=== PATIENT | female | born 1950 | race Caucasian/White ===

== ENCOUNTER 2016-10-08 19:19 | Inpatient (IN) | payer OTHER ==
[2016-10-08] VITALS (7 sets, daily range): BP systolic 109–149; BP diastolic 65–84; PULSE 73–90; RESP 16–18; TEMP 99; O2SAT 97–100
[~2016-10-08] VITALS: Ht 162.6 cm; Wt 81.2 kg
[2016-10-08] MEDS ORDERED: MORPHINE SULFATE 4 MG/ML INJ IV PUSH ONE (20:30)
[2016-10-08] MEDS ORDERED: ONDANSETRON HCL 4 MG/2 ML VIAL IVP ONE (20:30)
[2016-10-08] MEDS ORDERED: SODIUM CHLORIDE 0.9% FLUSH 5 ML FLUSH IVF PRN ×2 (20:30→22:00)
[2016-10-08 20:51] LABS: AUTOMATED NEUTROPHIL # 3.6 TH/MM3 (1.8-7.7); BASOPHIL % 0.3 % (0.0-2.0); EOSINOPHIL # 0.2 TH/MM3 (0-0.4); EOSINOPHIL % 2.5 % (0.0-4.0); HEMATOCRIT 39.9 % (35.0-46.0); HEMO FLAGS DIFF FINAL; LYMPH % 31.6 % (9.0-44.0); MEAN CELL VOLUME 89.1 FL (80.0-100.0); MEAN CORPUSCULAR HEMOGLOBIN 30.2 PG (27.0-34.0); MEAN CORPUSCULAR HGB CONC 33.9 % (32.0-36.0); MONO % 6.9 % (0.0-8.0); NEUT % 58.7 % (16.0-70.0); PLATELET COUNT 254 TH/MM3 (150-450); RED BLOOD COUNT 4.47 MIL/MM3 (4.00-5.30); RED CELL DISTRIBUTION WIDTH 14.1 % (11.6-17.2); WHITE BLOOD COUNT 6.2 TH/MM3 (4.0-11.0)
--- NOTE | 2016-10-08 20:54 | RADHPO ---
EXAM DATE/TIME: 10/08/2016 20:31 [facility] COMPARISON: No previous studies available for comparison. INDICATIONS : Trauma fall, right ankle and foot pain MEDICAL HISTORY : None. SURGICAL HISTORY : None. ENCOUNTER: Initial ACUITY: 1 day PAIN SCORE: 10/10 LOCATION: Right ankle FINDINGS: Examination reveals a trimalleolar ankle fracture/dislocation. There is posterior translocation of th e hindfoot relative to the dominant tibial and fibular fracture fragments. CONCLUSION: Moderately displaced right ankle trimalleolar fracture/dislocation Devin Mckinney MD on October 08, 2016 at 20:52 Board Certified Radiologist. This report was verified electronically.
--- NOTE | 2016-10-08 20:55 | PD ---
HPI Chief Complaint: Injury Time Seen by Provider: 20:53 Travel History International Travel<30 days: No Contact w/Intl Traveler<30days: No Traveled to known affect area: No History of Present Illness HPI 65-year-old female presents to the emergency room for evaluation of right ankle pain, obvious deformity, and swelling to her right ankle that occurred just prior to arrival. Patient states she slipped on a sheet on the floor and twisted her ankle. She tried to stand up immediately after falling but cannot apply any pressure. She called the fire department who came out and applied a splint. Patient opted to come to the emergency room via private vehicle. She has not taken anything for pain. She denies any other injuries. States denies knee pain, foot pain, and lower extremity paresthesias. She denies any chronic medical conditions or daily medications. Last ate lunch around noon and drink a glass of wine at dinnertime. PFSH Past Medical History Diminished Hearing: No Tetanus Vaccination: Unknown Influenza Vaccination: Yes ?: Not Past Surgical History Abdominal Surgery: Yes (Left ovary) Tonsillectomy: Yes Social History Alcohol Use: No Tobacco Use: No Substance Use: No Allergies-Medications (Allergen,Severity, Reaction): Coded Allergies: Codeine (Verified Allergy, Severe, 06/01/03) Uncoded Allergies: NONE (Allergy, Unknown, 06/02/03) Review of Systems Except as stated in HPI: all other systems reviewed are Neg Physical Exam Narrative GENERAL: Well-nourished, well-developed female in no acute distress. Afebrile. Ambulatory. SKIN: Warm and dry. No erythema. Mild ecchymosis to the right ankle. HEAD: Normocephalic. EYES: No scleral icterus. No injection or drainage. NECK: Supple, trachea midline. No JVD or lymphadenopathy. EXTREMITY: Obvious deformity to right ankle. Right ankle extremely tender to palpation. Limited range of motion of the ankle secondary to pain and swelling. Moderate edema. 2+ dorsalis pedis pulse. Full range of motion of the toes which causes pain in the ankle. No tenderness to palpation of the foot or knee. Full range of motion of the knee. Data Data Last Documented VS Vital Signs Date Time Temp Pulse Resp B/P Pulse Ox O2 Delivery O2 Flow Rate FiO2 10/08/16 21:10 16 10/08/16 21:05 100 Nasal Cannula 2.00 10/08/16 19:27 99.0 73 126/70 Orders Complete Blood Count With Diff (10/08/16 20:19) Comprehensive Metabolic Panel (10/08/16 20:19) Prothrombin Time / Inr (Pt) (10/08/16 20:19) Act Partial Throm Time (Ptt) (10/08/16 20:19) Type And Screen (10/08/16 20:19) Iv Access Insert/Monitor (10/08/16 20:19) Oximetry (10/08/16 20:19) Ice/Cold Pack (10/08/16 20:19) Ecg Monitoring (10/08/16 20:19) Morphine Inj (Morphine Inj) (10/08/16 20:30) Ondansetron Inj (Zofran Inj) (10/08/16 20:30) Sodium Chloride 0.9% Flush (Ns Flush) (10/08/16 20:30) Ankle, Complete ([id number]) (10/08/16 ) Foot, Limited (2vws) (10/08/16 ) Propofol 200 Mg/20 Ml Inj (Diprivan 200 (10/08/16 21:15) Sodium Chlor 0.9% 1000 Ml Inj (Ns 1000 M (10/08/16 21:15) Ankle, Limited (Ap&Lat) (10/08/16 ) Ondansetron Inj (Zofran Inj) (10/08/16 22:00) Hydromorphone Pf Inj (Dilaudid Pf Inj) (10/08/16 22:00) Admit Order (Ed Use Only) (10/08/16 ) ^ Wet Mix Operator / Telemetry (10/08/16 21:54) Diet Npo (10/10/16 Breakfast) ^ Saline Lock (10/08/16 21:54) Resp Oxygen Patrick C Titrat 1-4 L (10/08/16 ) ^ Notify Dr: Other (10/08/16 21:54) Sodium Chloride 0.9% Flush (Ns Flush) (10/09/16 09:00) Sodium Chloride 0.9% Flush (Ns Flush) (10/08/16 22:00) Consult Orthopedic (10/08/16 21:54) ^ For Further Orders (10/08/16 21:54) Labs Laboratory Tests Test 10/08/16 20:30 White Blood Count 6.2 TH/MM3 Red Blood Count 4.47 MIL/MM3 Hemoglobin 13.5 GM/DL Hematocrit 39.9 % Mean Corpuscular Volume 89.1 FL Mean Corpuscular Hemoglobin 30.2 PG Mean Corpuscular Hemoglobin 33.9 % Concent Red Cell Distribution Width 14.1 % Platelet Count 254 TH/MM3 Mean Platelet Volume 8.7 FL Neutrophils (%) (Auto) 58.7 % Lymphocytes (%) (Auto) 31.6 % Monocytes (%) (Auto) 6.9 % Eosinophils (%) (Auto) 2.5 % Basophils (%) (Auto) 0.3 % Neutrophils # (Auto) 3.6 TH/MM3 Lymphocytes # (Auto) 2.0 TH/MM3 Monocytes # (Auto) 0.4 TH/MM3 Eosinophils # (Auto) 0.2 TH/MM3 Basophils # (Auto) 0.0 TH/MM3 CBC Comment DIFF FINAL Differential Comment Prothrombin Time 10.6 SEC Prothromb Time International 1.0 RATIO Ratio Activated Partial 24.4 SEC Thromboplast Time Sodium Level 139 MEQ/L Potassium Level 3.6 MEQ/L Chloride Level 104 MEQ/L Carbon Dioxide Level 25.6 MEQ/L Anion Gap 9 MEQ/L Blood Urea Nitrogen 15 MG/DL Creatinine 0.69 MG/DL Estimat Glomerular Filtration 86 ML/MIN Rate Random Glucose 102 MG/DL Calcium Level 8.7 MG/DL Total Bilirubin 0.3 MG/DL Aspartate Amino Transf 24 U/L (AST/SGOT) Alanine Aminotransferase 30 U/L (ALT/SGPT) Alkaline Phosphatase 98 U/L Total Protein 8.0 GM/DL Albumin 4.0 GM/DL [facility] Medical Decision Making Medical Screen Exam Complete: Yes Emergency Medical Condition: Yes Medical Record Reviewed: Yes Differential Diagnosis Dislocation versus fracture versus contusion versus sprain versus strain Narrative Course 65-year-old otherwise healthy female presents to the emergency room via private vehicle for evaluation of right ankle pain, swelling, and obvious deformity that occurred just prior to arrival. Patient slipped on a sheet and twisted her ankle. Reports immediate pain and inability to ambulate. Physical exam reveals obvious deformity of the right ankle with mild tenting. No break in skin. Right lower extremity is neurovascularly intact with 2+ dorsalis pedis pulse. Full range of motion of the toes. Limited range of motion of the ankle. No knee pain. Vital signs stable. IV access established and basic labs obtained. CBC and BMP are unremarkable. Patient given morphine and Zofran. X-ray shows trimalleolar fracture with dislocation. Ankle was reduced with conscious sedation, see alternate provided for details. Patient placed in Noriega splint. Post reduction x-rays reveal improvement but some persistent dislocation. Right lower extremity remained neurovascularly intact. My attending physician, Dr. Dean, spoke to the orthopedic surgeon and admitting physician. Patient will be transferred to the main hospital for surgical fixation. Physician Communication Physician Communication My attending physician, Dr. Dean, spoke to the orthopedic surgeon, Dr. Farrell. Diagnosis Primary Impression: Trimalleolar fracture of ankle, closed Qualified Code: S82.851A - Trimalleolar fracture of ankle, closed, right, initial encounter Additional Impression: Dislocation closed Admitting Information Admitting Physician Requests: Admit Condition: Stable Claire Portillo Oct 08, 2016 20:55
--- NOTE | 2016-10-08 20:56 | RADHPO ---
EXAM DATE/TIME: 10/08/2016 20:34 [facility] COMPARISON: No previous studies available for comparison. INDICATIONS : Trauma fall, right ankle and foot pain MEDICAL HISTORY : None. SURGICAL HISTORY : None. ENCOUNTER: Initial ACUITY: 1 day PAIN SCORE: 8/10 LOCATION: Right foot/ankle FINDINGS: Ankle fracture described separately. The foot is otherwise intact with no evidence of fracture or dis location. Mineralization is normal no significant articular abnormalities are evident. CONCLUSION: Ankle fracture. Foot is intact Devin Mckinney MD on October 08, 2016 at 20:53 Board Certified Radiologist. This report was verified electronically.
[2016-10-08 20:58] LABS: CHLORIDE 104 MEQ/L (98-107); POTASSIUM 3.6 MEQ/L (3.5-5.1); SODIUM (NA) 139 MEQ/L (136-145)
[2016-10-08 21:01] LABS: ANION GAP 9 MEQ/L (5-15); APTT (PATIENT) 24.4 SEC (24.3-30.1); BICARBONATE 25.6 MEQ/L (21.0-32.0); BLOOD UREA NITROGEN 15 MG/DL (7-18); PROTHROMBIN TIME - PATIENT 10.6 SEC (9.8-11.6)
[2016-10-08 21:04] LABS: ALT (GPT) 30 U/L (10-53); AST (GOT) 24 U/L (15-37); GLOMERULAR FILTRATION RATE 86 ML/MIN (>89)
[2016-10-08 21:06] LABS: TOTAL BILIRUBIN ADULT 0.3 MG/DL (0.2-1.0)
[2016-10-08 21:07] LABS: ALKALINE PHOSPHATASE 98 U/L (45-117)
[2016-10-08] MEDS ORDERED: PROPOFOL 200 MG/20 ML AMP IV ONE (21:15)
[2016-10-08] MEDS: SODIUM CHLOR 0.9% 1000 ML INJ 1,000 ML IV SCH (21:15)
--- NOTE | 2016-10-08 21:42 | PD ---
Physical Exam Date Seen by Provider: Oct 08, 2016 Time Seen by Provider: 21:24 Narrative GENERAL: Well developed well-nourished female in no acute distress no respiratory distress with GCS of 15 SKIN: Warm and dry. HEAD: Normocephalic. Atraumatic. EYES: No scleral icterus. No injection or drainage. NECK: Supple, trachea midline. No JVD or lymphadenopathy. No tenderness to palpation along the cervical spine no bony step-off. CARDIOVASCULAR: Regular rate and rhythm without murmurs, gallops, or rubs. Chest wall: Nontender to palpation RESPIRATORY: Breath sounds equal bilaterally. No accessory muscle use. GASTROINTESTINAL: Abdomen soft, non-tender, nondistended. MUSCULOSKELETAL: No cyanosis, or edema. Patient with obvious closed deformity and tenting medial aspect of the right lower extremity at the ankle with palpable dorsalis pedis pulse and brisk capillary refill less than 2 seconds and intact sensation proximally extremity is neurovascular tendon intact with intact knee flexion and hip flexion. Right upper extremity left upper extremity left lower extremity exams are grossly normal range with brisk capillary refill per digit and 2+ radial and dorsalis pedis pulses 2 palpation intact sensation BACK: Nontender without obvious deformity. No CVA tenderness. Data Data Last Documented VS Vital Signs Date Time Temp Pulse Resp B/P Pulse Ox O2 Delivery O2 Flow Rate FiO2 10/08/16 21:10 16 10/08/16 21:05 100 Nasal Cannula 2.00 10/08/16 19:27 99.0 73 126/70 Orders Complete Blood Count With Diff (10/08/16 20:19) Comprehensive Metabolic Panel (10/08/16 20:19) Prothrombin Time / Inr (Pt) (10/08/16 20:19) Act Partial Throm Time (Ptt) (10/08/16 20:19) Type And Screen (10/08/16 20:19) Iv Access Insert/Monitor (10/08/16 20:19) Oximetry (10/08/16 20:19) Ice/Cold Pack (10/08/16 20:19) Ecg Monitoring (10/08/16 20:19) Morphine Inj (Morphine Inj) (10/08/16 20:30) Ondansetron Inj (Zofran Inj) (10/08/16 20:30) Sodium Chloride 0.9% Flush (Ns Flush) (10/08/16 20:30) Ankle, Complete ([id number]) (10/08/16 ) Foot, Limited (2vws) (10/08/16 ) Propofol 200 Mg/20 Ml Inj (Diprivan 200 (10/08/16 21:15) Sodium Chlor 0.9% 1000 Ml Inj (Ns 1000 M (10/08/16 21:15) Ankle, Limited (Ap&Lat) (10/08/16 ) Ondansetron Inj (Zofran Inj) (10/08/16 22:00) Hydromorphone Pf Inj (Dilaudid Pf Inj) (10/08/16 22:00) Admit Order (Ed Use Only) (10/08/16 ) ^ Poultry Farm Manager / Telemetry (10/08/16 21:54) Diet Npo (10/10/16 Breakfast) ^ Saline Lock (10/08/16 21:54) Resp Oxygen Patrick C Titrat 1-4 L (10/08/16 ) ^ Notify Dr: Other (10/08/16 21:54) Sodium Chloride 0.9% Flush (Ns Flush) (10/09/16 09:00) Sodium Chloride 0.9% Flush (Ns Flush) (10/08/16 22:00) Consult Orthopedic (10/08/16 21:54) ^ For Further Orders (10/08/16 21:54) Labs Laboratory Tests Test 10/08/16 20:30 White Blood Count 6.2 TH/MM3 Red Blood Count 4.47 MIL/MM3 Hemoglobin 13.5 GM/DL Hematocrit 39.9 % Mean Corpuscular Volume 89.1 FL Mean Corpuscular Hemoglobin 30.2 PG Mean Corpuscular Hemoglobin 33.9 % Concent Red Cell Distribution Width 14.1 % Platelet Count 254 TH/MM3 Mean Platelet Volume 8.7 FL Neutrophils (%) (Auto) 58.7 % Lymphocytes (%) (Auto) 31.6 % Monocytes (%) (Auto) 6.9 % Eosinophils (%) (Auto) 2.5 % Basophils (%) (Auto) 0.3 % Neutrophils # (Auto) 3.6 TH/MM3 Lymphocytes # (Auto) 2.0 TH/MM3 Monocytes # (Auto) 0.4 TH/MM3 Eosinophils # (Auto) 0.2 TH/MM3 Basophils # (Auto) 0.0 TH/MM3 CBC Comment DIFF FINAL Differential Comment Prothrombin Time 10.6 SEC Prothromb Time International 1.0 RATIO Ratio Activated Partial 24.4 SEC Thromboplast Time Sodium Level 139 MEQ/L Potassium Level 3.6 MEQ/L Chloride Level 104 MEQ/L Carbon Dioxide Level 25.6 MEQ/L Anion Gap 9 MEQ/L Blood Urea Nitrogen 15 MG/DL Creatinine 0.69 MG/DL Estimat Glomerular Filtration 86 ML/MIN Rate Random Glucose 102 MG/DL Calcium Level 8.7 MG/DL Total Bilirubin 0.3 MG/DL Aspartate Amino Transf 24 U/L (AST/SGOT) Alanine Aminotransferase 30 U/L (ALT/SGPT) Alkaline Phosphatase 98 U/L Total Protein 8.0 GM/DL Albumin 4.0 GM/DL Blood Type A NEGATIVE Antibody Screen NEGATIVE Blood Bank Comment [facility] Medical Record Reviewed: Yes Supervised Visit with CHICA: Yes Interpretation(s) Laboratory Tests Test 10/08/16 20:30 White Blood Count 6.2 TH/MM3 Red Blood Count 4.47 MIL/MM3 Hemoglobin 13.5 GM/DL Hematocrit 39.9 % Mean Corpuscular Volume 89.1 FL Mean Corpuscular Hemoglobin 30.2 PG Mean Corpuscular Hemoglobin 33.9 % Concent Red Cell Distribution Width 14.1 % Platelet Count 254 TH/MM3 Mean Platelet Volume 8.7 FL Neutrophils (%) (Auto) 58.7 % Lymphocytes (%) (Auto) 31.6 % Monocytes (%) (Auto) 6.9 % Eosinophils (%) (Auto) 2.5 % Basophils (%) (Auto) 0.3 % Neutrophils # (Auto) 3.6 TH/MM3 Lymphocytes # (Auto) 2.0 TH/MM3 Monocytes # (Auto) 0.4 TH/MM3 Eosinophils # (Auto) 0.2 TH/MM3 Basophils # (Auto) 0.0 TH/MM3 CBC Comment DIFF FINAL Differential Comment Prothrombin Time 10.6 SEC Prothromb Time International 1.0 RATIO Ratio Activated Partial 24.4 SEC Thromboplast Time Sodium Level 139 MEQ/L Potassium Level 3.6 MEQ/L Chloride Level 104 MEQ/L Carbon Dioxide Level 25.6 MEQ/L Anion Gap 9 MEQ/L Blood Urea Nitrogen 15 MG/DL Creatinine 0.69 MG/DL Estimat Glomerular Filtration 86 ML/MIN Rate Random Glucose 102 MG/DL Calcium Level 8.7 MG/DL Total Bilirubin 0.3 MG/DL Aspartate Amino Transf 24 U/L (AST/SGOT) Alanine Aminotransferase 30 U/L (ALT/SGPT) Alkaline Phosphatase 98 U/L Total Protein 8.0 GM/DL Albumin 4.0 GM/DL Blood Type A NEGATIVE Antibody Screen NEGATIVE Blood Bank Comment Right ankle x-ray: trimalleolar fracture dislocation right foot xr: foot nabi; ankle fracture cbc: wnlbmp: wnl coags: wnl Last Impressions Foot X-Ray 10/08/16 0000 Signed Impressions: Service Date/Time: Saturday, October 08, 2016 20:34 - CONCLUSION: Ankle fracture. Foot is intact Devin Mckinney MD Ankle X-Ray 10/08/16 0000 Signed Impressions: Service Date/Time: Saturday, October 08, 2016 21:32 - CONCLUSION: Casted trimalleolar right ankle fracture with some persistent displacement Devin Mckinney MD Ankle X-Ray 10/08/16 0000 Signed Impressions: Service Date/Time: Saturday, October 08, 2016 20:31 - CONCLUSION: Moderately displaced right ankle trimalleolar fracture/dislocation Devin Mckinney MD Differential Diagnosis fracture dislocation neurovascular injury Narrative Course Patient accepted in transfer of care from the [facility] as it was noted upon her arrival to have ankle deformity with tenting consistent with fracture dislocation of the right ankle. According to patient she was making a bed misstep slipped on a sheet on the floor and landed with her right ankle underneath her with pain. Patient was unable to attempt weightbearing secondary to pain. Patient denied other injury. Patient did not hit her head, did not have loss of consciousness, did not injure her neck, denies any upper or lower back pain, no chest pain or rib pain, no shortness of breath, no abdominal pain, no pelvic pain and no other extremity injury. Patient denies any chronic medical conditions however with repeated questioning does admit to history of sleep apnea but does not use CPAP denies any medications on a daily basis no previous surgeries and no tobacco use. Patient last ate around lunchtime and did have a glass of wine this evening. On physical exam patient is noted to have obvious deformity of the right ankle there is no open abrasion laceration or wound. Foot is neurovascularly intact. Capillary refill is brisk and less than 2 seconds per digit, dorsalis pedis pulses 2+ to palpation, patient has been sent for imaging and is aware that recommendation will be to undergo procedural sedation and reduction of the ankle here in the emergency department with anticipated need for admission to [facility] for definitive surgical intervention and repair of the suspected trimalleolar fracture. Imaging study is consistent with a trimalleolar fracture dislocation of the ankle; patient is agreeable to procedural sedation and reduction of the dislocation in the emergency department. Patient's case discussed with on-call orthopedist Dr. Farrell who recommends patient be transferred to [facility] admitted to the medicine service with consult to Dr. Noriega in the a.m. Patient administered Zofran 4 mg IV Dilaudid 0.5 mg IV maintenance IV fluids and kept nothing by mouth Procedures Procedure Narrative After the risks and benefits were discussed the following procedure was performed: MODERATE SEDATION: The patient was placed on a panel monitor and pulse oximetry. An ambu bag and suction was immediately available at bedside. The patient was monitored by the nurse. Oxygen saturation, heart rate and blood pressure were monitored. Procedural sedation was achieved using propofol 100mg . The patient was observed until awake and alert. Procedural Sedation time in attendance was 35 minutes. After acceptable procedural sedation obtained with patient in optimal position gentle traction was applied to the foot at the heel, with the lower leg secured with countertraction, minimal effort ankle appeared to reduce to anatomical position with resolution of tenting of the skin; post reduction maintained 2+ to palpation dorsalis pedis pulse, maintained capillary refill less than 2 seconds per digit; maintained sensation; patient able to dorsiflex and plantarflex the toes and a Noriega splint was applied with ice cuff. Patient tolerated procedural reduction of the dislocation well. Imaging study ordered. Physician Communication Physician Communication call placed to ortho on-call: discussed with Dr Farrell consult to Dr Noriega admit to medicine to [facility] ; call placed to [facility] provider Dr Hills Diagnosis Primary Impression: Trimalleolar fracture of ankle, closed Qualified Code: S82.851A - Trimalleolar fracture of ankle, closed, right, initial encounter Additional Impression: Dislocation closed Admitting Information Admitting Physician Requests: Admit Karmen Dean MD Oct 08, 2016 21:42
[2016-10-08] MEDS ORDERED: ONDANSETRON HCL 4 MG/2 ML VIAL IV PUSH ONE (22:00)
[2016-10-08] MEDS ORDERED: HYDROmorphone HCL PF 1 MG/ML VIAL IV PUSH ONE (22:00)
[2016-10-08] MEDS ORDERED: SODIUM CHLOR 0.9% 1000 ML INJ 1,000 ML IV ONE ×2 (22:15→22:30)
--- NOTE | 2016-10-08 22:16 | RADHPO ---
EXAM DATE/TIME: 10/08/2016 21:32 [facility] COMPARISON: No previous studies available for comparison. INDICATIONS : Post reduction right ankle MEDICAL HISTORY : SURGICAL HISTORY : None. ENCOUNTER: Subsequent ACUITY: 1 day PAIN SCORE: Non-responsive. LOCATION: Right ankle FINDINGS: Bony detail is obscured by cast material. A trimalleolar ankle fracture is again noted with some inte rval reduction. Mild persistent lateral displacement of the medial and lateral malleolar fragments an d the talus relative to the dominant tibial fragment and slight dorsal shift of the tibia relative to the talar dome. CONCLUSION: Casted trimalleolar right ankle fracture with some persistent displacement Devin Mckinney MD on October 08, 2016 at 22:13 Board Certified Radiologist. This report was verified electronically.
[2016-10-09] VITALS (10 sets, daily range): BP systolic 120–165; BP diastolic 72–84; PULSE 70–90; RESP 16–18; TEMP 96.2–97.9; O2SAT 94–98
[2016-10-09] MEDS ORDERED: ONDANSETRON HCL 4 MG/2 ML VIAL IV PUSH ONE ×2 (01:15→12:01)
[2016-10-09] MEDS ORDERED: HYDROmorphone HCL PF 1 MG/ML VIAL IV PUSH ONE (01:15)
[2016-10-09] MEDS ORDERED: ONDANSETRON HCL 4 MG/2 ML VIAL IV PUSH PRN (03:45)
[2016-10-09] MEDS ORDERED: INSULIN HUMAN REGULAR 1,000 UNITS/10 ML VIAL SQ PRN (03:45)
[2016-10-09] MEDS ORDERED: HYDROmorphone HCL PF 1 MG/ML VIAL IV PRN ×2 (03:45)
[2016-10-09] MEDS: LACTATED RINGER'S 1000 ML IV SCH (03:45)
[2016-10-09] MEDS: SODIUM CHLORID 0.9% 500 ML IV SCH ×2 (03:45→20:24)
--- NOTE | 2016-10-09 06:37 | PD.ORT.PN ---
Subjective Subjective Remarks s/p fall at home right ankle pain. no other complaints. Objective Vitals Vital Signs Date Time Temp Pulse Resp B/P Pulse Ox O2 Delivery O2 Flow Rate FiO2 10/09/16 03:56 98 Nasal Cannula 2.00 10/09/16 03:00 96.7 87 17 142/80 98 10/09/16 02:00 90 18 131/84 98 Nasal Cannula 2 10/09/16 02:00 16 10/09/16 01:05 72 16 132/74 98 Nasal Cannula 10/09/16 00:05 70 16 120/72 98 Nasal Cannula 2 10/08/16 23:05 76 16 109/65 98 Nasal Cannula 2 10/08/16 22:45 16 10/08/16 22:35 88 18 117/68 97 Nasal Cannula 2 10/08/16 22:05 90 16 123/77 99 Nasal Cannula 2 10/08/16 21:25 84 16 121/74 98 Nasal Cannula 2 10/08/16 21:10 16 10/08/16 21:05 100 Nasal Cannula 2.00 10/08/16 21:05 88 18 149/84 100 Nasal Cannula 2 10/08/16 21:05 100 2.00 10/08/16 21:00 18 100 Nasal Cannula 2 10/08/16 20:55 96 18 97 Room Air 10/08/16 19:27 99.0 73 18 126/70 99 I/O 10/08/16 10/08/16 10/08/16 10/09/16 10/09/16 10/09/16 07:00 15:00 23:00 07:00 15:00 23:00 Intake Total 1500 ml Output Total 2100 ml Balance -600 ml Intake IV Total 1500 ml Output Urine Total 2100 ml # Voids 1 Result Diagram: 10/08/16202910/08/162029 Other Results Laboratory Tests Test 10/08/16 20:30 Prothrombin Time 10.6 SEC (9.8-11.6) Prothromb Time International 1.0 RATIO Ratio Objective Remarks RLE: +short leg splint. no pain in knee or hip. NVI Assessment & Plan Assessment and Plan 1) Right Scottie Ankle Fx -npo -consents -surgeyr today Josue Corbin Oct 09, 2016 06:36
[2016-10-09] MEDS ORDERED: WALKER/ADULT/FO1 MIS (06:39)
[2016-10-09] MEDS ORDERED: HYDR-3288 PO (06:39)
[2016-10-09] MEDS ORDERED: GENTAMICIN SULFATE 80 MG/2 ML VIAL ONE ×2 (08:10→08:38)
[2016-10-09] MEDS ORDERED: BUPIVACAINE/EPINEPHRINE 0.25% PF 30 ML VIAL ONE (08:11)
[2016-10-09] MEDS ORDERED: ceFAZolin INJ 1,000 MG VIAL ONE (08:12)
[2016-10-09] MEDS ORDERED: VANCOMYCIN HCL 1000 MG VIAL ONE ×2 (08:13→10:29)
[2016-10-09] MEDS ORDERED: FAMOTIDINE 20 MG/2 ML VIAL ONE (08:27)
[2016-10-09] MEDS ORDERED: METOCLOPRAMIDE HCL 10 MG/2 ML VIAL ONE (08:27)
[2016-10-09] MEDS ORDERED: ACETAMINOPHEN 1000 MG/100 ML VIAL IV ONE (08:46)
[2016-10-09] MEDS ORDERED: MIDAZOLAM HCL 2 MG/2 ML VIAL ONE ×2 (08:46→11:55)
[2016-10-09] MEDS ORDERED: fentaNYL CITRATE 250 MCG/5 ML AMP ONE ×2 (08:47→11:55)
[2016-10-09] MEDS: SODIUM CHLORIDE 0.9% FLUSH 5 ML FLUSH IVF SCH ×2 (09:00→20:24)
--- NOTE | 2016-10-09 09:06 | MH ---
cc: DUSTIN LEUNG M.D. DATE OF ADMISSION: 10/08/2016 ADMISSION DIAGNOSIS 1. Trimalleolar fracture of the right ankle with persistent displacement. 2. Right carotid bruit. PERTINENT HISTORY This is a pleasant 65-year-old white female who presented to the emergency room in [place] yesterday evening after she injured her right ankle. She slipped on a sheet on the floor and twisted her ankle. She tried to stand up but was not able to apply any pressure. corporate counselor were called and they applied a splint. The patient opted to go to the emergency room via private vehicle. In the ER she was found to have the fracture as mentioned. The orthopedic surgeon was called who recommended she be admitted to [place]. She was transferred to [place] where I am seeing her now. She has no other complaints. He has been healthy. PAST MEDICAL HISTORY She had pancreatitis around 2012. She had some brief SVT around 2000 with a negative treadmill stress test and she has not had any problem with that in several years. She denies any heart attack, angina, CHF, lung disease, liver disease. No kidney disease or colon disease. No cancer. No thyroid problem. No seizures. PAST SURGICAL HISTORY 1. Tonsillectomy. 2. Left ovary removed for a cyst. 3. Laparoscopic cholecystectomy. 4. Colonoscopy about 5 years ago that was negative. ALLERGIES SHE TOOK CODEINE ONE TIME AND JUST HAD SOME NAUSEA, HAD NOT HAD ANY RASH OR HIVES. MEDICATIONS She is not on any medications. FAMILY HISTORY Father at 78 of leukemia. Mother at 92 of respiratory failure. She had diabetes and hypertension. SOCIAL HISTORY She has never smoked, has one glass of wine a day. 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. REVIEW OF SYSTEMS GENERAL: No fever, chills or sweats. HEENT: No runny nose, sore throat. No visual complaints. CARDIOVASCULAR: No chest pain, orthopnea, PND. PULMONARY: No cough, hemoptysis, wheezing. GI: No nausea, vomiting, constipation, diarrhea. No rectal bleeding. : No dysuria, urgency, frequency. Skin: Without rash. MUSCULOSKELETAL: Right ankle pain as mentioned. NEUROLOGIC: Without any numbness, tingling or motor deficits. PHYSICAL EXAMINATION GENERAL: A pleasant white female in no acute distress. VITAL SIGNS: BP 142/80, 131/84, respirations 17, pulse 87, temperature 96.7. O2 sat good. HEENT: Pupils equal. Sclera non-icteric. Nose without lesion. Mouth without inflammation or lesion. NECK: She has a right carotid bruit that she was not aware of. No bruit on the left side. HEART: Regular rate and rhythm. No murmur. LUNGS: Clear. ABDOMEN: Soft, nontender, no masses. EXTREMITIES: She has a splint on the right lower leg and ankle. Pulses are palpated in the left foot. No edema. SKIN: Negative. NEUROLOGIC: Oriented x3. Cranial nerves, motor and sensory intact. LABORATORY DATA CBC is negative with normal hemoglobin, white count and platelet count. CMP: Sodium 139, potassium 3.6, chloride 104, CO2 25.6, BUN 15, creatinine 0.69, calcium 8.7. AST, ALT, alkaline phosphatase, total protein and albumin were normal. Glucose 102. IMAGING DATA Foot x-ray was negative. Ankle x-ray showed the trimalleolar fracture as mentioned. ASSESSMENT As noted. PLAN Orthopedist will be seeing her and potentially going to the OR today. She is medically stable for surgery. I did inform her of for carotid bruit and told her she should see her PCP as an outpatient and get a carotid ultrasound. She has been given Dilaudid for pain. MD ANKUSH Waite/DEVON /6:33 AM /8:40 AM
[2016-10-09] MEDS ORDERED: ceFAZolin 2 GM PREMIX 50 ML ONE (10:29)
[2016-10-09] MEDS ORDERED: SODIUM CHLOR 0.9% 250 ML INJ 250 ML ONE (10:30)
--- NOTE | 2016-10-09 11:35 | PD.OP ---
cc: Klaus Perdue MD Operative Report Date of Surgery: Oct 09, 2016 Preoperative Diagnosis: Right ankle trimalleolar fracture Postoperative Diagnosis: Procedure: Open reduction internal fixation right ankle fractures Anesthesia: Gen. Surgeon: Klaus Perdue Illusionist(s): LINDSEY Beasley PA-C The surgical procedure was assisted by my physician congressional assistant. My P.A. presence was necessary throughout this case for the manipulation and positioning of the surgical extremity. My P.A. was assisting me throughout the duration of this procedure. The skill set of a physician congressional assistant was medically necessary to complete this procedure. During the surgical case the surgical nurse was working at the back table and the physician congressional assistant was directly assisting me. Operation and Findings: Patient was seen and evaluated preoperatively and found to have a displaced right ankle trimalleolar fracture. Informed consent was obtained after a detailed discussion of risk and benefits of surgery. The operative site was marked. Patient was brought to the OR, placed on the OR table, and given IV sedation and general endotracheal anesthesia. IV antibiotics were given preoperatively. A timeout procedure was performed. The left leg was prepped with alcohol followed by Hibiclens and draped in the usual sterile fashion. Attention was turned towards the distal fibula. A four-inch incision was made over the distal fibula. The subcutaneous tissue was dissected with Bovie. The fracture site was visualized. The fracture site was cleaned with curets. The fracture was now reduced. The fracture keyed into anatomic alignment. K-wires were used to h old provisional fixation. A lag screw was placed to compress fracture. A Synthes plate was selected. The plate was provisionally held to bone with K-wires. 3.5 cortical screws were used to compress the plate to bone. Multiple screws were placed above and below the fracture. Next attention was turned towards the medial malleolus. The medial malleolus supposed through a 3 cm incision. Saphenous vein was retracted. Fracture was visualized. Fracture was cleaned with curettes. Fracture was now reduced and keyed into anatomic alignment. K wires were used to hold provisional fixation. 2 guidepins for the 4.0 cannulated screws were placed in a retrograde fashion across the fracture. Fluoroscopy was used to confirm guidepin placement. Cannulated drill was placed over the guidepin. 2 appropriate length screws were now placed. Good compression was applied. Fluoroscopy confirmed well aligned fracture with well-placed hardware. The posterior malleolus was also visualized. This was small fragment and was in excellent position. This was left in place. Next, attention was turned to the syndesmosis. The syndesmosis was stressed. There was no widening of the syndesmosis with external rotation of the ankle. Incisions were thoroughly irrigated. The subcutaneous tissue was closed with 3- 0 PDS and the skin was closed with 3-0 nylon. Sterile dressings were applied. A well molded well-padded splint was applied. The patient was transferred to Recovery in stable condition. Needle and sponge counts were correct. Klaus Perdue MD Oct 09, 2016 11:35
[2016-10-09] MEDS ORDERED: MORPHINE SULFATE 4 MG/ML INJ IV PUSH PRN (11:45)
[2016-10-09] MEDS ORDERED: Post-op Orders (for Pharmacy) MISC XX ONE (11:45)
[2016-10-09] MEDS ORDERED: ACETAMINOPHEN/HYDROcodone 325 MG/7.5 MG TAB PO PRN ×2 (11:45)
--- NOTE | 2016-10-09 11:52 | RADRPT ---
EXAM DATE/TIME: 10/09/2016 11:16 [facility] COMPARISON: ANKLE RIGHT LIMITED (AP&LAT), October 08, 2016, 21:32. INDICATIONS : Post-op ORIF right ankle fracture. MEDICAL HISTORY : None. SURGICAL HISTORY : None. ENCOUNTER: Subsequent ACUITY: 2 days PAIN SCORE: Non-responsive. LOCATION: Right ankle. FINDINGS: Status post internal fixation at the ankle. There is good position and alignment of the fracture frag ments. The hardware appears to be intact. There is good alignment the mortise joint. CONCLUSION: Good position and alignment on this postoperative study. Ayo Reed MD on October 09, 2016 at 11:50 Board Certified Radiologist. This report was verified electronically.
[2016-10-09] MEDS ORDERED: DO NOT ADM ANY ANTICOAGULANT DRUGS XX PRN (11:53)
[2016-10-09] MEDS ORDERED: *morphine SULFATE 8 MG/ML PERIprocedure ONLY ONE ×2 (12:00→12:21)
[2016-10-09] MEDS ORDERED: LACTATED RINGER'S 1000 ML INJ 1,000 ML IV ONE (12:01)
[2016-10-09] MEDS ORDERED: PROPOFOL 200 MG/20 ML AMP IV ONE (12:01)
--- NOTE | 2016-10-09 14:49 | MB ---
cc: ARNEL BRUCECADENMARY DATE OF CONSULTATION: 10/09/2016 REASON FOR CONSULTATION Right ankle trimalleolar fracture. CONSULTING PHYSICIAN Dr. Arnel Bruce HISTORY OF PRESENT ILLNESS Mrs. Shane is a 65-year-old female who presented to the emergency room after injuring her ankle. She tripped on a sheet from her bed. She twisted her ankle and fell. She was unable to stand or ambulate. She presented to the emergency room where x-rays revealed a displaced right ankle fracture. She is currently awake and alert on the orthopedic floor. Her only complaint is her right ankle. She denies dizziness, syncope or loss of consciousness. Pain is worse with movement and is improved with rest. PAST MEDICAL HISTORY ILLNESSES 1. History of pancreatitis. 2. SVT. SURGERIES 1. Tonsillectomy. 2. Oophorectomy. 3. Cholecystectomy. 4. Colonoscopy. ALLERGIES CODEINE. MEDICATIONS None. SOCIAL HISTORY The patient denies tobacco or drug use. She drinks wine. FAMILY HISTORY Positive for leukemia in her father and diabetes and hypertension in her mother. REVIEW OF SYSTEMS The patient denies headache, visual changes, neck pain, chest pain, shortness of breath, abdominal pain, nausea, vomiting or recent weight loss. She complains of right ankle pain and swelling. PHYSICAL EXAMINATION GENERAL: The patient is a well-developed, well-nourished 65-year female in no acute distress. She is awake and alert. She is alert and oriented x3. VITAL SIGNS: Temperature 96.2, pulse 83, respirations 18, blood pressure 155/79. O2 sat is 97% on two liters nasal cannula. HEAD: The patient is normocephalic. Pupils are equal. NECK: Soft, nontender. Trachea is midline. CHEST: Lungs are clear. ABDOMEN: Soft, nontender, nondistended. EXTREMITIES: Examination of bilateral upper extremities reveals no pain with shoulder, elbow or wrist motion. She has intact sensation in all fingers. She has good capillary refill in all fingers. She has +5 form grader strength bilaterally. Radial pulses are palpable. Skin is intact to both hands. Examination of left leg reveals no pain with hip, knee or ankle motion. Skin is intact. Dorsalis pedis pulse is palpable. Sensation is grossly intact. Examination of right leg reveals no pain with hip or knee motion. She is very tender to motion over the right ankle. She has mild swelling present. Skin is intact. Dorsalis pedis pulse is palpable. Sensation is grossly intact. X-RAYS X-rays of right ankle were reviewed. X-rays reveal a displaced right ankle trimalleolar fracture. IMPRESSION 1. Displaced right ankle trimalleolar fracture. 2. Carotid bruit. PLAN The treatment options were discussed with the patient. At this point I would recommend open reduction, internal fixation of the right ankle. The risks of surgery include bleeding, infection, injuries to arteries, nerves and blood vessels, ankle stiffness, loss of motion, painful hardware, as well as medical complications including blood clot, stroke, heart attack and . All questions were answered. I will plan on surgery today. A mid-level provider in my office, nurse practitioner or PA, may see this patient on a follow-up basis and continue to implement the objective of this plan including: Starting or adjusting medications, injections of muscle, tendon, bursa or joints, cast application, orthotic or brace application, physical therapy, further radiographic studies including x-ray, MRI, CT, ultrasounds or bone scan, vascular studies, neurologic studies, or other specialist consultations, and proceeding with surgical management as appropriate. MD GINI Stinson/DEVON /11:38 AM /2:39 PM
--- NOTE | 2016-10-09 15:04 | RADRPT ---
EXAM DATE/TIME: 10/09/2016 13:45 [facility] COMPARISON: No previous studies available for comparison. EXTERNAL COMPARISON : [facility], Ultrasound carotid, June 11, 2012 INDICATIONS : Syncope. MEDICAL HISTORY : Syncope. SURGICAL HISTORY : Tonsillectomy. Left oophrectomy. ENCOUNTER: Initial ACUITY: 1 day PAIN SCORE: 2/10 LOCATION: Bilateral neck PEAK SYSTOLIC VELOCITIES (cm/sec): ICA/CCA RATIO: Right: 1.0 Left: 0.9 ICA: Right: 82 Left: 71 CCA: Right: 80 Left: 79 ECA: Right: 79 Left: 76 VERTEBRAL: Right: 47 antegrade Left: 57 antegrade Elevated flow velocities and ICA/CCA ratios have been found to correlate with increased degrees of vessel stenosis, calculated as percentage of diameter relative to a normal segment of distal ICA/CCA FINDINGS: RIGHT CAROTID: No significant stenosis is visualized. The waveforms are within normal limits. LEFT CAROTID: No significant stenosis is visualized. The waveforms are within normal limits. VERTEBRAL ARTERIES: Antegrade flow is seen in both vertebral arteries. MISCELLANEOUS: None. CONCLUSION: Unremarkable bilateral carotid ultrasound. Ayo Reed MD on October 09, 2016 at 15:02 Board Certified Radiologist. This report was verified electronically.
[2016-10-09] MEDS: SODIUM CHLOR 0.9% 1000 ML INJ 1,000 ML IV SCH (17:15)
[2016-10-09] MEDS ORDERED: ceFAZolin 2 GM PREMIX 50 ML IV SCH ×2 (18:00)
--- NOTE | 2016-10-09 19:21 | EKG ---
Date Performed: 10/09/2016 Time Performed: 06:56:58 PTAGE: 65 years EKG: Sinus rhythm MODERATE INTRAVENTRICULAR CONDUCTION DELAY NONSPECIFIC ST & T-WAVE ABNORMALITY PROLONGED QT INTERVAL ABNORMAL ECG NO PREVIOUS TRACING DOCTOR: Mau Fink Interpretating Date/Time 10/09/2016 19:18:52
[2016-10-10] VITALS (7 sets, daily range): BP systolic 108–155; BP diastolic 58–80; PULSE 64–83; RESP 16–20; TEMP 96.4–97.3; O2SAT 92–99
[2016-10-10] MEDS: LACTATED RINGER'S 1000 ML IV SCH ×2 (00:42→23:02)
[2016-10-10] MEDS: SODIUM CHLOR 0.9% 1000 ML INJ 1,000 ML IV SCH ×3 (03:15→23:02)
[2016-10-10] MEDS ORDERED: TRAM50TA PO (06:06)
--- NOTE | 2016-10-10 06:40 | PD.ORT.PN ---
Subjective Subjective Remarks Hydrocodone made her nauseous and is requesting tramadol for pain. States she lives with her works full days. Objective Vitals Vital Signs Date Time Temp Pulse Resp B/P Pulse Ox O2 Delivery O2 Flow Rate FiO2 10/09/16 21:47 94 Nasal Cannula 1.00 10/09/16 20:00 97.9 84 18 149/75 94 10/09/16 18:24 18 10/09/16 16:00 96.3 73 16 144/77 96 10/09/16 14:30 96.4 79 16 165/80 98 10/09/16 12:45 97.6 65 14 130/77 96 Nasal Cannula 2 10/09/16 12:30 70 14 124/72 95 Nasal Cannula 2 10/09/16 12:15 69 14 120/72 96 Nasal Cannula 2 10/09/16 12:00 79 14 130/69 94 Nasal Cannula 2 10/09/16 11:52 97.5 79 14 132/80 96 Nasal Cannula 2 10/09/16 08:04 96.2 83 18 155/79 97 I/O 10/09/16 10/09/16 10/09/16 10/10/16 10/10/16 10/10/16 07:00 15:00 23:00 07:00 15:00 23:00 Intake Total 1741 ml 1840 ml 480 ml Output Total 2100 ml 10 ml Balance -359 ml 1830 ml 480 ml Intake Oral 240 ml 480 ml IV Total 1741 ml 200 ml Other 1400 ml Output Urine Total 2100 ml 0 ml Estimated Blood Loss 10 ml # Voids 1 2 2 # Bowel Movements 0 0 Result Diagram: 10/08/16202910/08/162029 Objective Remarks Right lower extremity: Clean short leg splint. Intact sensation in all toes. Good capillary refills. No pain with hip or knee Assessment & Plan Assessment and Plan 1) Right Scottie Ankle Fx ORIF POD 1 Nonweightbearing right lower extremity Maintain splint Elevate to decrease swelling Physical therapy for evaluation of home discharge versus rehabilitation Incentive spirometry Pain control Plan on discharge to home or rehabilitation once safe Follow-up with Dr. Perdue or NAZARIO in 2 weeks RAMIRO GONSALVES PA-C Oct 10, 2016 06:39
[2016-10-10] MEDS ORDERED: traMADol HCL 50 MG TAB PO PRN (06:45)
[2016-10-10] MEDS: traMADol HCL 50 MG TAB PO PRN ×4 (08:06→23:39)
[2016-10-10] MEDS: SODIUM CHLORIDE 0.9% FLUSH 5 ML FLUSH IVF SCH ×2 (08:08→21:25)
--- NOTE | 2016-10-10 15:20 | HHI.PR ---
Subjective Remarks No complaints. Pt sitting in the chair Pain well controlled No nausea/vomiting. Objective Vitals Vital Signs Date Time Temp Pulse Resp B/P Pulse Ox O2 Delivery O2 Flow Rate FiO2 10/10/16 09:14 94 21 10/10/16 09:06 18 10/10/16 08:00 96.6 66 20 118/65 99 10/10/16 04:37 96.7 64 16 108/64 93 10/10/16 00:26 97.0 64 16 117/62 93 10/09/16 21:47 94 Nasal Cannula 1.00 10/09/16 20:00 97.9 84 18 149/75 94 10/09/16 18:24 18 10/09/16 16:00 96.3 73 16 144/77 96 10/09/16 10/09/16 10/10/16 15:00 23:00 07:00 Intake Total 2080 ml 480 ml Output Total 10 ml Balance 2070 ml 480 ml Intake Oral 480 ml 480 ml IV Total 200 ml Other 1400 ml Output Urine Total 0 ml Estimated Blood Loss 10 ml # Voids 3 2 # Bowel Movements 0 0 Result Diagram: 10/08/16202910/08/162029 Other Results Laboratory Tests Test 10/08/16 20:30 White Blood Count 6.2 TH/MM3 Red Blood Count 4.47 MIL/MM3 Hemoglobin 13.5 GM/DL Hematocrit 39.9 % Mean Corpuscular Volume 89.1 FL Mean Corpuscular Hemoglobin 30.2 PG Mean Corpuscular Hemoglobin 33.9 % Concent Red Cell Distribution Width 14.1 % Platelet Count 254 TH/MM3 Mean Platelet Volume 8.7 FL Neutrophils (%) (Auto) 58.7 % Lymphocytes (%) (Auto) 31.6 % Monocytes (%) (Auto) 6.9 % Eosinophils (%) (Auto) 2.5 % Basophils (%) (Auto) 0.3 % Neutrophils # (Auto) 3.6 TH/MM3 Lymphocytes # (Auto) 2.0 TH/MM3 Monocytes # (Auto) 0.4 TH/MM3 Eosinophils # (Auto) 0.2 TH/MM3 Basophils # (Auto) 0.0 TH/MM3 CBC Comment DIFF FINAL Differential Comment Prothrombin Time 10.6 SEC Prothromb Time International 1.0 RATIO Ratio Activated Partial 24.4 SEC Thromboplast Time Sodium Level 139 MEQ/L Potassium Level 3.6 MEQ/L Chloride Level 104 MEQ/L Carbon Dioxide Level 25.6 MEQ/L Anion Gap 9 MEQ/L Blood Urea Nitrogen 15 MG/DL Creatinine 0.69 MG/DL Estimat Glomerular Filtration 86 ML/MIN Rate Random Glucose 102 MG/DL Calcium Level 8.7 MG/DL Total Bilirubin 0.3 MG/DL Aspartate Amino Transf 24 U/L (AST/SGOT) Alanine Aminotransferase 30 U/L (ALT/SGPT) Alkaline Phosphatase 98 U/L Total Protein 8.0 GM/DL Albumin 4.0 GM/DL Blood Type A NEGATIVE Antibody Screen NEGATIVE Blood Bank Comment Imaging Last Impressions Carotid Artery Ultrasound 10/09/16 0000 Signed Impressions: Service Date/Time: Sunday, October 09, 2016 13:45 - CONCLUSION: Unremarkable bilateral carotid ultrasound. Ayo Reed MD Ankle X-Ray 10/09/16 0000 Signed Impressions: Service Date/Time: Sunday, October 09, 2016 11:16 - CONCLUSION: Good position and alignment on this postoperative study. Ayo Reed MD Foot X-Ray 10/08/16 0000 Signed Impressions: Service Date/Time: Saturday, October 08, 2016 20:34 - CONCLUSION: Ankle fracture. Foot is intact Devin Mckinney MD Objective Remarks General: NAD, AAOx3 Chest: CTA bilaterally Cardiac: Regular Abd: +BS, soft ND/NT Ext: short leg splint on RLE. Intact sensation in all toes. Good capillary refills. A/P Problem List: (1) Trimalleolar fracture of ankle, closed Status: Acute Plan: - Pt was transferred to [facility] on 10/08/16 after she presented to the ED at [facility] after she sustained an injury to her right ankle when she slipped on a sheet on the floor and twisted her ankle. - Pt was found to have a right bimalleolar ankle fx - She underwent surgical correction on 10/09/[address] Noriega. - Pt doing well post-operatively - Post-op pain control per ortho - PT daily - IS - Constipation precautions. - At admission pt had a noted carotid bruit on examination and Carotid US was performed which was negative. - Pt will need to followup with her PCP following this hospitalization. - Pt without any other medical issues and we will sign off and transfer care to Ortho Assessment and Plan Patient examined. Assessment and plan formulated with Kari Conklin PA-C. I agree with the above. Problem Qualifiers (1) Trimalleolar fracture of ankle, closed: Qualified Code: S82.851A - Trimalleolar fracture of ankle, closed, right, initial encounter Kari Conklin Oct 10, 2016 15:20 Arnel Bruce DO Oct 20, 2016 10:30
[2016-10-11] MEDS ORDERED: BISACODYL 10 MG SUPP RECTAL PRN (02:45)
[2016-10-11] MEDS: traMADol HCL 50 MG TAB PO PRN ×3 (05:24→16:19)
--- NOTE | 2016-10-11 07:10 | PD.ORT.PN ---
Subjective Subjective Remarks Pain controlled. Sitting bedside. No new complaints Objective Vitals Vital Signs Date Time Temp Pulse Resp B/P Pulse Ox O2 Delivery O2 Flow Rate FiO2 10/10/16 23:30 97.3 69 17 155/71 95 10/10/16 20:00 96.4 83 18 130/58 92 10/10/16 16:00 96.7 72 20 144/80 98 10/10/16 14:55 18 10/10/16 09:14 94 21 10/10/16 08:00 96.6 66 20 118/65 99 I/O 10/10/16 10/10/16 10/10/16 10/11/16 10/11/16 10/11/16 07:00 15:00 23:00 07:00 15:00 23:00 Intake Total 240 ml 480 ml 240 ml Balance 240 ml 480 ml 240 ml Intake Oral 240 ml 480 ml 240 ml # Voids 1 1 1 # Bowel Movements 0 0 0 Result Diagram: 10/08/16202910/08/162029 Objective Remarks Right lower extremity: Clean short leg splint. Intact sensation in all toes. Good capillary refills. No pain with hip or knee Assessment & Plan Assessment and Plan 1) Right Scottie Ankle Fx ORIF POD 2 Nonweightbearing right lower extremity Maintain splint Elevate to decrease swelling Physical therapy for walker training Incentive spirometry Pain control Plan on discharge to rehabilitation when bed available Follow-up with Dr. Perdue or NAZARIO in 2 weeks RAMIRO GONSALVES PA-C Oct 11, 2016 07:10
[2016-10-11] MEDS: SODIUM CHLORIDE 0.9% FLUSH 5 ML FLUSH IVF SCH (07:35)
[2016-10-11 08:00] VITALS: BP 108/66; PULSE 68; RESP 18; TEMP 97.2; O2SAT 93
[2016-10-11] MEDS ORDERED: POLYETHYLENE GLYCOL 17 GM PKG PO SCH (09:00)
[2016-10-11] MEDS ORDERED: DOCUSATE SODIUM 100 MG CAP PO SCH (09:00)
[2016-10-11] MEDS ORDERED: MAGNESIUM HYDROXIDE SUSP 30 ML CUP PO SCH (09:00)
[2016-10-11] MEDS: SODIUM CHLOR 0.9% 1000 ML INJ 1,000 ML IV SCH (09:15)
[2016-10-11 12:00] VITALS: BP 128/73; PULSE 64; RESP 18; TEMP 96.5; O2SAT 94
[2016-10-11 17:19] VITALS: RESP 18
--- NOTE | 2016-11-07 06:58 | HHI.DS ---
Discharge Summary Admission Date Oct 08, 2016 at 21:57 Discharge Date: Oct 11, 2016 Admitting Diagnosis R ankle trimalleolar fracture dislocation, s/p closed reduction (1) Trimalleolar fracture of ankle, closed Diagnosis: Principal Procedures Open reduction internal fixation of right trimalleolar ankle fracture Brief History Malalignment is a 65-year-old female who had a slip and fall with right ankle fracture. She was brought to the emergency room where x-rays confirmed ankle fracture. She was splinted. Surgical intervention followed thereafter. No other complaints or injuries Imaging Last Impressions Carotid Artery Ultrasound 10/09/16 0000 Signed Impressions: Service Date/Time: Sunday, October 09, 2016 13:45 - CONCLUSION: Unremarkable bilateral carotid ultrasound. Ayo Reed MD Ankle X-Ray 10/09/16 0000 Signed Impressions: Service Date/Time: Sunday, October 09, 2016 11:16 - CONCLUSION: Good position and alignment on this postoperative study. Ayo Reed MD Foot X-Ray 10/08/16 0000 Signed Impressions: Service Date/Time: Saturday, October 08, 2016 20:34 - CONCLUSION: Ankle fracture. Foot is intact Devin Mckinney MD Hospital Course Upon arrival to emergency department she had significant pain to her right ankle. X-rays confirmed fracture to right ankle and after a well-padded splint was consulted to orthopedics for treatment. She was brought to the operating room where open reduction internal fixation of the right trimalleolar ankle fracture was successful with no complications. She was resplinted and progressed slowly with physical therapy. Pain was controlled and she remained hemodynamically stable. Once arrangements were made for rehabilitation discharge she was discharged to intermediate facility. Pt Condition on Discharge: Good Discharge Disposition: Discharge to SNF Discharge Instructions DIET: Follow Instructions for: As Tolerated, No Restrictions Activities you can perform: Non Weight Bearing Follow up Referrals: Orthopedics - 10/23/16 @ [facility] with Klaus Noriega MD New Medications: Tramadol (Tramadol) 50 Mg Tab 50 MG PO Q4H PRN PAIN #60 Ref 0 TAB Walker/Adult/Folding (Walker/Adult/Folding) 1 Mis Mis 1 EA .ROUTE DIRECTED #1 Ref 0 EA RAMIRO GONSALVES PA-C Nov 07, 2016 06:58
== END 2016-10-11 17:44 | DRG 494 ==
LOC: PHEFT 19:19 → PHEDA 21:57 → N06B 10-09 03:22
PROVIDERS: ADMIT Orthopaedic Surgery Orthopaedic Trauma; ATTEND Orthopaedic Surgery Orthopaedic Trauma
PROC: 0SSFXZZ Reposition Right Ankle Joint, External Approach (ICD-10-PCS; 2016-10-08)
PROC: 0QSG04Z Reposition Right Tibia with Internal Fixation Device, Open Approach (ICD-10-PCS; 2016-10-09)
PROC: 0QSJ04Z Reposition Right Fibula with Internal Fixation Device, Open Approach (ICD-10-PCS; principal; 2016-10-09 10:18)
DX: S82.851A Displaced trimalleolar fracture of right lower leg, initial encounter for closed fracture (principal); E66.9 Obesity, unspecified; G47.30 Sleep apnea, unspecified; R09.89 Other specified symptoms and signs involving the circulatory and respiratory systems; K21.9 Gastro-esophageal reflux disease without esophagitis; R11.0 Nausea; T40.2X5A Adverse effect of other opioids, initial encounter; W01.0XXA Fall on same level from slipping, tripping and stumbling without subsequent striking against object, initial encounter; Y92.003 Bedroom of unspecified non-institutional (private) residence as the place of occurrence of the external cause; Y92.230 Patient room in hospital as the place of occurrence of the external cause; Z68.30 Body mass index [BMI] 30.0-30.9, adult; Z88.5 Allergy status to narcotic agent
CPT/HCPCS: 27840; 73600; 73610; 73620; 76000; 80053; 85025; 85610; 85730; 86850; 86900; 86901; 93005; 93880; 94150; 94770; 96361; 96374; 96375; 99152; 99153; C1713; J0131; J0690; J1170; J1580; J2250; J2270; J2405; J2765; J3010; J3370; J7030; J7050; J7120